=== PATIENT | male | born 1990 | race Caucasian/White ===

== ENCOUNTER 2018-05-09 22:37 | Emergency (ER) | payer SELFPAY ==
[~2018-05-09] VITALS: Ht 167.6 cm; Wt 54.4 kg
--- NOTE | 2018-05-09 23:17 | NUR ---
PT CAME IN FOR LACERATION/AVULSION, PLACED ON ER BED 3, ER MD AT BED SIDE FOR EVAL, AWAITING ORDERS.
[2018-05-09] MEDS ORDERED: LIDOCAINE 1%-EPI 1:100,000 20 ML VIAL TP ONE (23:30)
[2018-05-09] MEDS ORDERED: BACI/NEOM/POLY B OINT PKT 1 UDPKT PACKET TP ONE (23:30)
[2018-05-09] MEDS ORDERED: TDAP [DIPH/PERTUSSIS/TET] 0.5 ML VIAL IM ONE (23:30)
[2018-05-09] MEDS ORDERED: LIDOCAINE 1%-EPI 1:100,000 20 ML VIAL ONE (23:35)
[2018-05-10] MEDS ORDERED: TDAP [DIPH/PERTUSSIS/TET] 0.5 ML VIAL IM ONE (00:02)
[2018-05-10] MEDS ORDERED: BACI/NEOM/POLY B OINT PKT 1 UDPKT PACKET ONE (00:02)
--- NOTE | 2018-05-10 00:30 | NUR ---
PT BACK FROM CT WO CONTRAST
[2018-05-10 01:35] VITALS: BP 128/80
== END 2018-05-10 01:20 | disposition home or self-care (01) ==
LOC: ER 22:39
DX: S01.112A Laceration without foreign body of left eyelid and periocular area, initial encounter (principal); F10.129 Alcohol abuse with intoxication, unspecified; Z98.890 Other specified postprocedural states; W05.2XXA Fall from non-moving motorized mobility scooter, initial encounter; Y93.89 Activity, other specified; Y92.89 Other specified places as the place of occurrence of the external cause; Y99.8 Other external cause status
CPT/HCPCS: 70450-TC; 90715; A6402; J3490

== ENCOUNTER 2018-05-18 22:03 | Emergency (ER) | payer SELFPAY ==
[~2018-05-18] VITALS: Ht 165.1 cm; Wt 56.7 kg
[2018-05-18 22:17] VITALS: BP 149/98
--- NOTE | 2018-05-18 22:49 | NUR ---
KARLA NAPHTHALENE OPERATOR AT BEDSIDE REMOVING SUTURES FROM EYEBROW.
== END 2018-05-18 23:18 | disposition home or self-care (01) ==
LOC: ER 22:03
DX: S01.112D Laceration without foreign body of left eyelid and periocular area, subsequent encounter (principal); Z98.890 Other specified postprocedural states; X58.XXXD Exposure to other specified factors, subsequent encounter
CPT/HCPCS: 99281; A4606; Z7610; Z7502

== ENCOUNTER 2018-07-26 16:42 | Emergency (ER) | payer SELFPAY ==
[~2018-07-26] VITALS: Ht 165.1 cm; Wt 56.7 kg
[2018-07-26 16:56] VITALS: BP 134/78
--- NOTE | 2018-07-26 19:14 | NUR ---
Carlos navarro in [facility] - 07/26/18 at 1914 by LISA called in the waiting room to move to bed no response.
--- NOTE | 2018-07-26 19:14 | NUR ---
called to be move to the room and not in the waiting room
--- NOTE | 2018-07-26 19:18 | NUR ---
PATIENT NOT IN WAITING ROOM.
== END 2018-07-26 19:19 | disposition left against medical advice (07) ==
LOC: ER 16:45
DX: Z53.21 Procedure and treatment not carried out due to patient leaving prior to being seen by health care provider (principal)

== ENCOUNTER 2018-07-31 14:07 | Emergency (ER) | payer SELFPAY ==
[~2018-07-31] VITALS: Ht 165.1 cm; Wt 56.7 kg
[2018-07-31 14:20] VITALS: BP 136/71
== END 2018-07-31 14:46 | disposition home or self-care (01) ==
LOC: ER 14:09
DX: R21 Rash and other nonspecific skin eruption (principal); F10.20 Alcohol dependence, uncomplicated; Z98.890 Other specified postprocedural states
CPT/HCPCS: Z7502

== ENCOUNTER 2018-08-24 10:53 | Emergency (ER) | payer SELFPAY ==
[~2018-08-24] VITALS: Ht 165.1 cm; Wt 59.0 kg
--- NOTE | 2018-08-24 12:00 | NUR ---
PATIENT ARRIVED AT UNIT AMBULATORY, A&O X 3, NO ACUTE DISTRESS. WITH REPORT OF FEELING NAUSEA AND REPORTED HE HAD EPISODE OF VOMITING, REPORTED HE WAS DRINKING VODKA YESTERDAY.
[2018-08-24 12:13] LABS: BASOPHILS # (AUTO) 0.1 /CMM (0.0-0.2); BASOPHILS % (AUTO) 4.5 % (0.0-2.0); EOSINOPHILS % (AUTO) 1.5 % (0.0-6.0); HEMATOCRIT 43 % (39-51); HEMOGLOBIN 14.9 g/dL (13.5-17.5); LYMPHOCYTES # (AUTO) 0.8 /CMM (0.8-4.8); LYMPHOCYTES % (AUTO) 31.4 % (20.0-44.0); MEAN CORPUSCULAR HGB CONC 35 g/dl (31.0-36.0); MEAN CORPUSCULAR VOLUME 101 fL (80-96); MONOCYTES # (AUTO) 0.4 /CMM (0.1-1.30); MONOCYTES % (AUTO) 14.8 % (2.0-12.0); NEUTROPHILS # (AUTO) 1.2 /CMM (1.8-8.9); NEUTROPHILS % (AUTO) 47.8 % (43.0-81.0); PLATELET COUNT (AUTO) 175 /CMM (150-450); RED BLOOD CELL COUNT(AUTO) 4.22 MIL/uL (4.5-6.0); WHITE BLOOD COUNT (AUTO) 2.5 K/uL (4.3-11.0)
--- NOTE | 2018-08-24 12:15 | NUR ---
DR AGOSTO AT BEDSIDE
[2018-08-24 12:19] LABS: CALCIUM, SERUM 8.4 mg/dL (8.5-10.1); CREATININE 0.7 mg/dL (0.6-1.3); POTASSIUM 4.2 mmol/L (3.5-5.1)
--- NOTE | 2018-08-24 12:30 | NUR ---
Patient discharged to home in stable condition. Written and verbal after care instructions given. Patient verbalizes understanding of instruction. ID wristband removed
[2018-08-24 12:31] VITALS: BP 113/71
== END 2018-08-24 12:32 | disposition home or self-care (01) ==
LOC: ER 10:54
DX: F10.20 Alcohol dependence, uncomplicated (principal); Z98.890 Other specified postprocedural states
CPT/HCPCS: 36415; 80048-TC; 85025-TC

== ENCOUNTER 2018-08-29 12:38 | Emergency (ER) | payer SELFPAY ==
[~2018-08-29] VITALS: Ht 165.1 cm; Wt 59.4 kg
--- NOTE | 2018-08-29 12:41 | NUR ---
PT BIBSELF FOR ETOH ABUSE; PT AAOX4, PT ON MONITOR, VSS, NAD NOTED, PENDING MD POWELL
[2018-08-29] MEDS ORDERED: IV NS 0.9% 1,000 ML BAG IV ONE (13:00)
--- NOTE | 2018-08-29 16:13 | NUR ---
Patient discharged to home in stable condition. Written and verbal after care instructions given. Patient verbalizes understanding of instruction. IV removed. Catheter intact and site benign. Pressure and 4x4 applied to site. No bleeding noted.
[2018-08-29 16:14] VITALS: BP 120/80
== END 2018-08-29 16:16 | disposition home or self-care (01) ==
LOC: ER 12:41
DX: F10.129 Alcohol abuse with intoxication, unspecified (principal); R42 Dizziness and giddiness; Z98.890 Other specified postprocedural states; Y90.9 Presence of alcohol in blood, level not specified
CPT/HCPCS: 70450; 96360; 99284; J7030

== ENCOUNTER 2018-12-01 04:47 | Inpatient (IN) | payer MEDICAID ==
[~2018-12-01] VITALS: Ht 165.1 cm; Wt 59.0 kg
[2018-12-01 05:25] LABS: BASOPHILS % (AUTO) 1.7 % (0.0-2.0); EOSINOPHILS % (AUTO) 0.4 % (0.0-6.0); HEMATOCRIT 46 % (39-51); HEMOGLOBIN 15.6 g/dL (13.5-17.5); LYMPHOCYTES % (AUTO) 36.8 % (20.0-44.0); MEAN CORPUSCULAR HGB CONC 34 g/dl (31.0-36.0); MEAN CORPUSCULAR VOLUME 102 fL (80-96); MONOCYTES # (AUTO) 0.4 /CMM (0.1-1.30); MONOCYTES % (AUTO) 13.2 % (2.0-12.0); NEUTROPHILS # (AUTO) 1.3 /CMM (1.8-8.9); NEUTROPHILS % (AUTO) 47.9 % (43.0-81.0); PLATELET COUNT (AUTO) 162 /CMM (150-450); RED BLOOD CELL COUNT(AUTO) 4.49 MIL/uL (4.5-6.0); WHITE BLOOD COUNT (AUTO) 2.7 K/uL (4.3-11.0)
--- NOTE | 2018-12-01 05:26 | NUR ---
patient came to er and placed in bed 15 for SI.pt seen and states, "I don't want to live anymore." patient has semi flat affect. responding appropriately to quetiosn alert and oriented x4. patient reports that he drinks everyday. reports his last drink was a t 230 am this morning. patient reports that he has a plan to silit his wrists in a bathtub so people will not have to clean up after him. patient has no signs of tremors. iv started at rac 20 gauge. patient wanded by security. 1:1 observation initiated. iv also started to left ac 18 gauge.
[2018-12-01 05:29] LABS: APPEARANCE,URINE CLEAR (CLEAR); BILIRUBIN,URINE 1+ (NEGATIVE); BLOOD, URINE 2+ Ery/uL (NEGATIVE); COLOR,URINE DARK YELLO (YELLOW); KETONES,URINE 3+ (NEGATIVE); LEUKOCYTE ESTERASE ,URINE NEGATIVE (NEGATIVE); NITRITE, URINE NEGATIVE (NEGATIVE); PROTEIN,URINE 3+ mg/dl (NEGATIVE); UGLUCOSE NEGATIVE (NEGATIVE)
[2018-12-01] MEDS ORDERED: IV NS 0.9% 1,000 ML BAG IV ONE (05:30)
[2018-12-01 05:32] LABS: CALCIUM, SERUM 8.9 mg/dL (8.5-10.1); CREATININE 0.8 mg/dL (0.6-1.3); POTASSIUM 3.9 mmol/L (3.5-5.1)
[2018-12-01 05:40] LABS: ALBUMIN 4.6 g/dL (3.4-5.0); BILIRUBIN,DIRECT 0.3 mg/dL (0.0-0.2); BILIRUBIN,TOTAL 0.7 mg/dL (0.2-1.0); TOTAL PROTEIN, SERUM 8.4 g/dL (6.4-8.2)
[2018-12-01 05:41] LABS: RBC,URINE 0-2 /HPF (0-2); WBC,URINE 0-2 /HPF (0-3)
[2018-12-01 05:42] LABS: BACTERIA,URINE Few /HPF (None Seen); SQUAMOUS EPITHELIAL CELL,UR Rare /HPF (None Seen)
[2018-12-01] MEDS ORDERED: Thiamine 100 MG/ML VIAL ONE (05:58)
[2018-12-01] MEDS: Thiamine 100 MG in IV D5W 50 ML IV SCH (06:05)
--- NOTE | 2018-12-01 06:06 | NUR ---
VENOUS ABG DRAW DONE
[2018-12-01] MEDS ORDERED: HYDROCODONE/APAP 5/325MG 1 EACH TABLET PO PRN (06:30)
[2018-12-01] MEDS ORDERED: ACETAMINOPHEN 325 MG TABLET PO PRN (06:30)
[2018-12-01] MEDS ORDERED: ONDANSETRON HCL/PF 4 MG/2 ML VIAL IVP PRN (06:30)
[2018-12-01] MEDS ORDERED: MAGNESIUM HYDROXIDE 30 ML UDC PO PRN (06:30)
[2018-12-01] MEDS ORDERED: MAG HYDROX/AL HYDROX/SIMETH 30 ML UDC PO PRN (06:30)
[2018-12-01] MEDS ORDERED: ZOLPIDEM TARTRATE 5 MG TABLET PO PRN (06:30)
[2018-12-01] MEDS ORDERED: Z GUARD REMEDY 2 OZ OINT TP PRN (06:30)
--- NOTE | 2018-12-01 07:22 | NUR ---
PT ENDORSED TO CHAVA NUNEZ RN FOR ARTIE
--- NOTE | 2018-12-01 07:49 | NUR ---
REPORT GIVEN TO AMIRA HDZ FOR ARTIE
[2018-12-01 08:00] VITALS: BP 122/84
[2018-12-01 09:00] VITALS: BP 122/84
--- NOTE | 2018-12-01 09:00 | NUR ---
MS RN RECEIVED A NEW ADMISSION FROM ER, 28 YEAR OLD MALE,AWAKE,ALERT ORIENTED X3, CAME IM W/ DX OF ETOH AND DEHYDRATION, DENIES PAIN AT THIS TIME, WILL MONITOR PATIENT.
[2018-12-01 12:00] VITALS: BP 130/88
--- NOTE | 2018-12-01 12:00 | NUR ---
MS HDZ LUNCH SERVED,TOLERATED WELL.
[2018-12-01 16:00] VITALS: BP 110/90
--- NOTE | 2018-12-01 17:20 | NUR ---
MS WILDER WAS SEEN AND EXAMINED BY NATACHA W/ ORDERS MADE AND CARRIED OUT.
[2018-12-01] MEDS: IV NS 0.9% 1,000 ML IV PRN (17:42)
[2018-12-01] MEDS: LORAZEPAM INJ 2 MG/ML VIAL IV PRN (17:43)
[2018-12-01] MEDS: FOLIC ACID 1 MG TABLET PO SCH (18:12)
--- NOTE | 2018-12-01 18:39 | NUR ---
MS RN ON BED, NO DISTRSS NOTED, STILL W/ ONE ON ONE SITTER FOR SAFETY AND COMFORT.
--- NOTE | 2018-12-01 19:20 | NUR ---
MS RN OPENING NOTE PM BEDSIDE REPORT RECIEVED FROM AMIRA PATIENT IS IN BED, NO DISTRSS NOTED, STILL W/ ONE ON ONE SITTER FOR SAFETY AND COMFORT ANY ADAMS AT BEDSIDE. POC REVIEWED QUESTIONS CONCERNS ADDRESSED. BED DOWN LOCKED CALL LIGHT IN REACH. WILL CONT TO MONITOR.
[2018-12-01 20:00] VITALS: BP 121/68
[2018-12-01] MEDS: TRAZODONE 50 MG TABLET PO SCH (21:13)
[2018-12-02] VITALS: BP 118/90
[2018-12-02] MEDS: IV NS 0.9% 1,000 ML IV PRN ×2 (02:58→17:03)
[2018-12-02 04:00] VITALS: BP 129/95
[2018-12-02] MEDS: LORAZEPAM INJ 2 MG/ML VIAL IV PRN (05:39)
[2018-12-02] MEDS: Thiamine 100 MG in IV D5W 50 ML IV SCH (05:39)
[2018-12-02 06:28] LABS: EOSINOPHILS % (AUTO) 0.2 % (0.0-6.0); HEMATOCRIT 38 % (39-51); LYMPHOCYTES # (AUTO) 0.7 /CMM (0.8-4.8); LYMPHOCYTES % (AUTO) 25.9 % (20.0-44.0); MEAN CORPUSCULAR HGB CONC 35 g/dl (31.0-36.0); MEAN CORPUSCULAR VOLUME 101 fL (80-96); MONOCYTES # (AUTO) 0.4 /CMM (0.1-1.30); MONOCYTES % (AUTO) 16.1 % (2.0-12.0); NEUTROPHILS # (AUTO) 1.5 /CMM (1.8-8.9); NEUTROPHILS % (AUTO) 56.8 % (43.0-81.0); PLATELET COUNT (AUTO) 120 /CMM (150-450); RED BLOOD CELL COUNT(AUTO) 3.71 MIL/uL (4.5-6.0); WHITE BLOOD COUNT (AUTO) 2.6 K/uL (4.3-11.0)
--- NOTE | 2018-12-02 06:30 | NUR ---
MS RN CLOSING NOTE PM PATIENT IS IN BED, NO DISTRSS NOTED, STILL W/ ONE ON ONE SITTER ANY ADAMS. DISCUSSED PLAN POST DISCHARGE PATIENT IS EXPRESSING INTEREST IN REHAB AND STAYING SOBER. PATIENT ENCOURAGED TO BED DOWN LOCKED CALL LIGHT IN REACH. WILL CONT TO MONITOR PER TELEMETRY PATIENT IS SR TO ST IN THE 90'S AND LOW 100'S.
[2018-12-02 06:41] LABS: CALCIUM, SERUM 8.5 mg/dL (8.5-10.1); CREATININE 0.6 mg/dL (0.6-1.3); MAGNESIUM 1.3 mg/dL (1.8-2.4); PHOSPHORUS 2.4 mg/dL (2.5-4.9); POTASSIUM 3.2 mmol/L (3.5-5.1)
[2018-12-02 07:04] LABS: THYROID STIMULATING HORMONE 1.625 uIU/mL (0.358-3.74)
[2018-12-02 08:00] VITALS: BP_SYST 143; BP_SYST 145; BP_DIAS 98; BP_DIAS 99
--- NOTE | 2018-12-02 08:00 | NUR ---
MS RN RECEIVED ON BED, AWAKE,ALERT,ORIENTED X4,NOT IN ANY FORM OF DISTRESS, RESPIRATIONS EVEN AND UNLABORED,NO SOB NOTED, LUNGS ARE CLEAR, ABDOMEN SOFT,POSITIVE BOWEL SOUNDS, DENIES PAIN AT THIS TIME.ALL NEEDS ATTENDED.
[2018-12-02] MEDS ORDERED: Thiamine 100 MG in IV D5W 50 ML IV SCH (09:00)
--- NOTE | 2018-12-02 09:00 | NUR ---
MS HDZ BREAKFAST SERVED,DUE MEDS GIVEN,TOLERATED WELL.
[2018-12-02] MEDS: FOLIC ACID 1 MG TABLET PO SCH (09:24)
[2018-12-02] MEDS ORDERED: POTASSIUM CHLORIDE 20 MEQ TAB.PRT.SR PO ONE (10:30)
[2018-12-02] MEDS ORDERED: NEUTRA PHOS 1 POWD.PACKET PO ONE (10:30)
[2018-12-02] MEDS: Magnesium 1GM/D5W 100ML PREMIX 100 ML IV SCH ×2 (11:46→15:15)
[2018-12-02 16:00] VITALS: BP 129/90
--- NOTE | 2018-12-02 16:00 | NUR ---
MS RN SLEEPING, NO DISTRESS NOTED. STILL W/ SITTER.
--- NOTE | 2018-12-02 18:24 | NUR ---
MS RN ON BED, NO DISTRESS NOTED.
--- NOTE | 2018-12-02 19:37 | NUR ---
MS RN RECEIVE PT IN BED A/O X 3 STABLE, 1:1 SITTER AT BEDSIDE. RESPIRATIONS EVEN AND UNLABORED, SAFETY MEASURES IN PLACE. WILL CONTINUE TO MONITOR.
[2018-12-02 20:00] VITALS: BP 126/89
[2018-12-02] MEDS: TRAZODONE 50 MG TABLET PO SCH (21:45)
[2018-12-03] MEDS: IV NS 0.9% 1,000 ML IV PRN (05:07)
--- NOTE | 2018-12-03 06:16 | NUR ---
MS RN PT SLEPT WELL THROUGHOUT THE NIGHT. 1:1 SITTER AT BEDSIDE, NO SUICIDAL THOUGHTS AT THIS TIME. NO C/O OF PAIN. KEPT CLEAN AND DRY AND COMFORTABLE. NEEDS ATTENDED AND ANTICIPATED. NURSING CARE RENDERED, SAFETY MEASURES AT ALL TIMES. ENDORSE TO THE NEXT SHIFT.
[2018-12-03 06:37] LABS: CALCIUM, SERUM 8.8 mg/dL (8.5-10.1); CREATININE 0.5 mg/dL (0.6-1.3)
--- NOTE | 2018-12-03 08:00 | NUR ---
MS RN RECEIVED ON BED, AWAKE,ALERT,ORIENTED X4,NOT IN ANY FORM OF DISTRESS, RESPIRATIONS EVEN AND UNLABORED,NO SOB NOTED, LUNGS ARE CLEAR,ABDOMEN SOFT,POSITIVE BOWEL SOUNDS,DENIES PAIN AT THIS TIME, ALL NEEDS ATTENDED.
[2018-12-03] MEDS ORDERED: POTASSIUM CHLORIDE 20 MEQ TAB.PRT.SR PO ONE (08:30)
--- NOTE | 2018-12-03 08:30 | NUR ---
MS RN PATIENT WENT DOWN W/ SITTER TO SMOKE, WAS SEEN BY NATACHA MONTELONGO W/ ORDERS MADE AND CARRIED OUT.
[2018-12-03] MEDS ORDERED: THIAMINE HCL 100 MG TABLET PO SCH (09:00)
[2018-12-03] MEDS: FOLIC ACID 1 MG TABLET PO SCH (09:28)
--- NOTE | 2018-12-03 09:30 | NUR ---
MS HDZ BREAKFAST SERVED,DUE MEDS GIVEN,TOLERATED WELL.
--- NOTE | 2018-12-03 11:35 | NUR ---
ms rn patient wants to go home, will ready and notify anurag for discharge order, charge nurse aware.
--- NOTE | 2018-12-03 12:10 | NUR ---
MS PERSONAL DEVELOPMENT COACH INSTRUCTIONS GIVEN AND UNDERSTOOD, CLINIC REFERRALS GIVEN.PATIENT WENT HOME VIA UBER.NO DISTRESS NOTED.
== END 2018-12-03 12:00 | disposition home or self-care (01) | DRG 775 ==
LOC: ER 04:49 → TELE 07:47 → MED 12-02 10:24
PROVIDERS: ADMIT Nurse Practitioner Acute Care; ATTEND Nurse Practitioner Acute Care
DX: F10.239 Alcohol dependence with withdrawal, unspecified (principal); E87.2 Acidosis; R45.851 Suicidal ideations; E83.39 Other disorders of phosphorus metabolism; D75.89 Other specified diseases of blood and blood-forming organs; K70.9 Alcoholic liver disease, unspecified; F17.200 Nicotine dependence, unspecified, uncomplicated; E83.42 Hypomagnesemia; E87.6 Hypokalemia; R25.1 Tremor, unspecified; F41.1 Generalized anxiety disorder; F39 Unspecified mood [affective] disorder; F31.81 Bipolar II disorder; Y90.8 Blood alcohol level of 240 mg/100 ml or more
CPT/HCPCS: 36415; 80048-TC; 80061-TC; 80076-TC; 80305; 81000-TC; 82803-TC; 83735-TC; 84100-TC; 84443-TC; 85025-TC; 87081-TC; 97116-TC; 97530-TC; G0378; G0480; J2060; J3411; J3475; J7030; J7060

== ENCOUNTER 2019-03-18 15:08 | Emergency (ER) | payer MEDICAID, OTHER ==
[~2019-03-18] VITALS: Ht 165.1 cm; Wt 56.7 kg
--- NOTE | 2019-03-18 15:12 | NUR ---
PT BIB SELF C/O TREMORS AND MILD CHEST DISCOMFORT "IM HAVING ALCOHOL WITHDRAWAL" PT IS AAOX4, NOT IN RESPIRATORY DISTRESS, HOOKED TO MONITOR, NOTED INCREASED HEART RATE,KEPT RESTED AND COMFORTABLE, WILL CONTINUE TO MONITOR.
--- NOTE | 2019-03-18 15:20 | NUR ---
AT BEDSIDE FOR EVAL.
[2019-03-18] MEDS ORDERED: LORAZEPAM INJ 2 MG/ML VIAL IV ONE (15:30)
[2019-03-18] MEDS ORDERED: Thiamine 100 MG in IV D5W 50 ML IV SCH (15:30)
[2019-03-18] MEDS ORDERED: ONDANSETRON HCL/PF 4 MG/2 ML VIAL IVP ONE (15:30)
[2019-03-18] MEDS ORDERED: IV NS 0.9% 1,000 ML BAG IV ONE ×3 (15:30→17:30)
--- NOTE | 2019-03-18 15:40 | NUR ---
IV LINE ESTABLISHED, BLOOD DRAWN AND SENT TO LAB.
[2019-03-18] MEDS ORDERED: LORAZEPAM INJ 2 MG/ML VIAL ONE (15:43)
[2019-03-18] MEDS ORDERED: ONDANSETRON HCL/PF 4 MG/2 ML VIAL ONE (15:43)
[2019-03-18 15:44] LABS: BASOPHILS # (AUTO) 0.1 /CMM (0.0-0.2); EOSINOPHILS % (AUTO) 1.1 % (0.0-6.0); HEMATOCRIT 45 % (39-51); HEMOGLOBIN 15.5 g/dL (13.5-17.5); LYMPHOCYTES # (AUTO) 0.2 /CMM (0.8-4.8); LYMPHOCYTES % (AUTO) 3.5 % (20.0-44.0); MEAN CORPUSCULAR HGB CONC 34 g/dl (31.0-36.0); MEAN CORPUSCULAR VOLUME 98 fL (80-96); MONOCYTES # (AUTO) 0.4 /CMM (0.1-1.30); MONOCYTES % (AUTO) 5.9 % (2.0-12.0); NEUTROPHILS # (AUTO) 5.4 /CMM (1.8-8.9); NEUTROPHILS % (AUTO) 88.5 % (43.0-81.0); PLATELET COUNT (AUTO) 209 /CMM (150-450); RED BLOOD CELL COUNT(AUTO) 4.59 MIL/uL (4.5-6.0); WHITE BLOOD COUNT (AUTO) 6.1 K/uL (4.3-11.0)
[2019-03-18 15:51] LABS: CALCIUM, SERUM 8.9 mg/dL (8.5-10.1); CREATININE 1.3 mg/dL (0.6-1.3); POTASSIUM 3.4 mmol/L (3.5-5.1)
--- NOTE | 2019-03-18 15:51 | NUR ---
URINAL GIVEN BUT UNABLE TO PROVIDE URINE SPECIMEN THIS TIME
--- NOTE | 2019-03-18 15:53 | NUR ---
CONTOUR BAND SAW OPERATOR VERTICAL AT BEDSIDE FOR XRAY.
[2019-03-18 16:05] LABS: ALBUMIN 4.6 g/dL (3.4-5.0); BILIRUBIN,DIRECT 0.4 mg/dL (0.0-0.2); BILIRUBIN,TOTAL 0.9 mg/dL (0.2-1.0); TOTAL PROTEIN, SERUM 8.3 g/dL (6.4-8.2)
--- NOTE | 2019-03-18 19:01 | NUR ---
URINE SPECIMEN COLLECTED AND SENT TO LAB.
--- NOTE | 2019-03-18 19:05 | NUR ---
REPORT GIVEN TO WILDER PIMENTEL FOR ARTIE.
[2019-03-18 19:06] LABS: APPEARANCE,URINE Clear (CLEAR); BILIRUBIN,URINE SMALL (NEGATIVE); BLOOD, URINE Trace-lysed Ery/uL (NEGATIVE); COLOR,URINE Yellow (YELLOW); KETONES,URINE >=160 (NEGATIVE); LEUKOCYTE ESTERASE ,URINE Negative (NEGATIVE); NITRITE, URINE Negative (NEGATIVE); PH,URINE 6.5 (5.0-8.0); PROTEIN,URINE 100 mg/dl (NEGATIVE); UGLUCOSE Negative (NEGATIVE); UROBILINOGEN,URINE 0.2 EU/dL (0.2)
[2019-03-18] MEDS ORDERED: CHLORDIAZEPOXIDE HCL 25 MG CAPSULE ONE (19:24)
--- NOTE | 2019-03-18 19:28 | NUR ---
Pt resting in bed comfortably. Blankets provided. VSS.
[2019-03-18] MEDS ORDERED: CHLORDIAZEPOXIDE HCL 25 MG CAPSULE PO ONE (19:30)
[2019-03-18 19:31] LABS: BACTERIA,URINE Few /HPF (None Seen); OTHER CRYSTALS,URINE FEW /HPF (None Seen); SQUAMOUS EPITHELIAL CELL,UR Few /HPF (None Seen); WBC,URINE 0-2 /HPF (0-3)
--- NOTE | 2019-03-18 19:54 | NUR ---
Patient discharged to home in stable condition. Written and verbal after care instructions given. Patient verbalizes understanding of instruction. IV removed. Catheter intact and site benign. Pressure and 4x4 applied to site. No bleeding noted. pt ambulatory with a steady gait, walked through the ER back and forth with a steady gait. pt stated he will take a lyft home.
--- NOTE | 2019-03-18 19:54 | NUR ---
PT also instructed not to drive.
[2019-03-18 20:08] VITALS: BP 138/88
== END 2019-03-18 20:07 | disposition home or self-care (01) ==
LOC: ER 15:11
DX: F10.20 Alcohol dependence, uncomplicated (principal); F32.9 Major depressive disorder, single episode, unspecified; F17.200 Nicotine dependence, unspecified, uncomplicated; R00.0 Tachycardia, unspecified; Y90.8 Blood alcohol level of 240 mg/100 ml or more
CPT/HCPCS: 36415; 71045; 80048; 80076; 80305; 80307; 81001; 82962; 83690; 85025; 85730; 93005; 96361; 96365; 96375; 99284; 99406; J2060; J2405; J3411; J7030 ×2; J7060; 81000-TC; G0480

== ENCOUNTER 2019-04-12 22:13 | Emergency (ER) | payer OTHER ==
[2019-04-12] MEDS ORDERED: CHLORDIAZEPOXIDE HCL 25 MG CAPSULE ONE (22:28)
[2019-04-12] MEDS ORDERED: CHLORDIAZEPOXIDE HCL 25 MG CAPSULE PO ONE (22:30)
== END 2019-04-12 22:42 | disposition home or self-care (01) ==
LOC: ER 22:17
DX: F10.229 Alcohol dependence with intoxication, unspecified (principal); F32.9 Major depressive disorder, single episode, unspecified; F17.200 Nicotine dependence, unspecified, uncomplicated; Y90.9 Presence of alcohol in blood, level not specified

== ENCOUNTER 2019-04-28 18:02 | Emergency (ER) | payer OTHER ==
[~2019-04-28] VITALS: Ht 165.1 cm; Wt 54.9 kg
--- NOTE | 2019-04-28 18:12 | NUR ---
PT AAOX4. AMBULATORY. C/O RLQ PAIN RADIATING TO BACK. PT SATES HE HAS ACUTE APPENDICITIS AND HAS BEEN DRINKING. PLACED ON MONITOR AND PULSE OX.
--- NOTE | 2019-04-28 18:28 | NUR ---
US AT BEDSIDE
--- NOTE | 2019-04-28 18:28 | NUR ---
LABS COLLECTED AND SENT TO LAB
[2019-04-28] MEDS ORDERED: IV NS 0.9% 1,000 ML BAG IV ONE (18:30)
[2019-04-28 18:31] LABS: BASOPHILS # (AUTO) 0.1 /CMM (0.0-0.2); BASOPHILS % (AUTO) 2.4 % (0.0-2.0); EOSINOPHILS % (AUTO) 0.5 % (0.0-6.0); HEMATOCRIT 44 % (39-51); HEMOGLOBIN 14.7 g/dL (13.5-17.5); LYMPHOCYTES # (AUTO) 1.3 /CMM (0.8-4.8); LYMPHOCYTES % (AUTO) 45.5 % (20.0-44.0); MEAN CORPUSCULAR HGB CONC 34 g/dl (31.0-36.0); MEAN CORPUSCULAR VOLUME 100 fL (80-96); MONOCYTES # (AUTO) 0.4 /CMM (0.1-1.30); MONOCYTES % (AUTO) 12.7 % (2.0-12.0); NEUTROPHILS # (AUTO) 1.1 /CMM (1.8-8.9); NEUTROPHILS % (AUTO) 38.9 % (43.0-81.0); PLATELET COUNT (AUTO) 253 /CMM (150-450); RED BLOOD CELL COUNT(AUTO) 4.34 MIL/uL (4.5-6.0); WHITE BLOOD COUNT (AUTO) 2.9 K/uL (4.3-11.0)
[2019-04-28 19:00] LABS: BAND % (MANUAL) 6 % (0.0-5.0); BASOPHILS % (MANUAL) 3 % (0.0-2.0); LYMPHOCYTES % (MANUAL) 42 % (16-48); MONOCYTES % (MANUAL) 11 % (0-11.0); NEUTROPHILS % (MANUAL) 38 (42-76)
[2019-04-28 19:12] LABS: CALCIUM, SERUM 9.2 mg/dL (8.5-10.1); CREATININE 0.8 mg/dL (0.6-1.3); POTASSIUM 3.6 mmol/L (3.5-5.1)
[2019-04-28 19:13] LABS: APPEARANCE,URINE Clear (CLEAR); BILIRUBIN,URINE Negative (NEGATIVE); BLOOD, URINE Moderate Ery/uL (NEGATIVE); COLOR,URINE Yellow (YELLOW); KETONES,URINE Negative (NEGATIVE); LEUKOCYTE ESTERASE ,URINE Negative (NEGATIVE); NITRITE, URINE Negative (NEGATIVE); PH,URINE 6.5 (5.0-8.0); PROTEIN,URINE Trace mg/dl (NEGATIVE); UGLUCOSE Negative (NEGATIVE)
[2019-04-28 19:18] LABS: ALBUMIN 4.1 g/dL (3.4-5.0); BILIRUBIN,DIRECT 0.1 mg/dL (0.0-0.2); BILIRUBIN,TOTAL 0.4 mg/dL (0.2-1.0); TOTAL PROTEIN, SERUM 7.5 g/dL (6.4-8.2)
--- NOTE | 2019-04-28 19:39 | NUR ---
IV removed. Catheter intact and site benign. Pressure and 4x4 applied to site. No bleeding noted.
[2019-04-28 19:44] VITALS: BP 124/75
--- NOTE | 2019-04-28 19:47 | NUR ---
Patient discharged to home in stable condition. Written and verbal after care instructions given. Patient verbalizes understanding of instruction. Pt called [employer]. Walked to the car.
[2019-04-28 19:59] LABS: BACTERIA,URINE Rare /HPF (None Seen); MUCUS,URINE Moderate /LPF (None Seen); SQUAMOUS EPITHELIAL CELL,UR Rare /HPF (None Seen); URINE AMORPHOUS URATE Few /HPF (None Seen); WBC,URINE 0-2 /HPF (0-3)
== END 2019-04-28 19:52 | disposition home or self-care (01) ==
LOC: ER 18:02
DX: I10 Essential (primary) hypertension (principal); F10.10 Alcohol abuse, uncomplicated; F32.9 Major depressive disorder, single episode, unspecified; F41.9 Anxiety disorder, unspecified; F17.200 Nicotine dependence, unspecified, uncomplicated; F90.9 Attention-deficit hyperactivity disorder, unspecified type; Y90.8 Blood alcohol level of 240 mg/100 ml or more
CPT/HCPCS: 36415; 76705; 80048; 80076; 80307; 81001; 83690; 85025; 99284; 99406; J7030; 81000-TC; G0480